=== PATIENT | female | born 1950 | race Caucasian/White ===

== ENCOUNTER 2017-10-31 10:51 | Day surgery (SDC) | payer MEDICARE, OTHER ==
[2017-10-31 11:14] VITALS: BMI 27.6
[2017-10-31] MEDS ORDERED: Lactated Ringer's 1,000 ML IV ONE (11:15)
[2017-10-31] MEDS ORDERED: Propofol 10 mg/ml Inj (20 ML) ONE (12:07)
[2017-10-31] MEDS ORDERED: Midazolam 2 MG/2 ML VIAL ONE (12:07)
[2017-10-31 12:47] VITALS: RESP 18; TEMP 97
[2017-10-31 13:08] VITALS: BP 143/56; PULSE 63; O2SAT 99
== END 2017-10-31 15:14 | disposition home or self-care (01) ==
LOC: H.ENDO 10:51
PROVIDERS: ATTEND Internal Medicine Gastroenterology
DX: R19.7 Diarrhea, unspecified (principal); E11.9 Type 2 diabetes mellitus without complications; E78.5 Hyperlipidemia, unspecified; I10 Essential (primary) hypertension; G40.909 Epilepsy, unspecified, not intractable, without status epilepticus; F31.9 Bipolar disorder, unspecified; D12.5 Benign neoplasm of sigmoid colon; K57.30 Diverticulosis of large intestine without perforation or abscess without bleeding
CPT/HCPCS: 45380; 88305; J2250; J2704; J7120